=== PATIENT | male | born 1930 | race Caucasian/White ===

== ENCOUNTER 2016-10-04 11:25 | Emergency (ER) | payer MEDICARE ==
[~2016-10-04] VITALS: Ht 188 cm; Wt 83.9 kg
[~2016-10-04 11:25] MED LIST: ACET650S11 RC; ALBU2.5V13 NEB; ASPI325T4 PO; ASPI81TA2 PO; CARV3.12 PO; CARV6.252 PO; CITA20TA5 PO; CITA20TA9 PO; CITA40TA5 PO; DIGO125T PO; FURO-68 PO; FURO40TA4 PO; HYDR-971 PO; HYDR12.53 PO; HYDR12.553 PO; LANS15CA66 PO; LANS30CA PO; LORA10TA68 PO; MULT-208 PO; POLY17PO5 PO; POTA10TA31 PO; POTA20TA12 PO; PROP150T PO; RIVA20TA2 PO; SIMV20TA PO; WARF3TAB7 PO
[2016-10-04] MEDS ORDERED: LIDOCAINE 1% Multi-Dose 20 ML VIAL. ID ONE (12:15)
[2016-10-04 12:32] LABS: BASO % 0 % (0-3); CALCIUM 8.8 mg/dL (8.5-10.1); CREATININE 1.4 mg/dL (0.7-1.3); EOS % 0 % (0-3); GFR 48.4; HEMATOCRIT 39.8 % (39.0-53.0); HEMOGLOBIN 12.9 g/dL (13.0-17.5); LYMPH # 0.5 x10^3/uL (1.0-4.8); LYMPH % 7 % (24-48); MEAN CORPUSCULAR HEMOGLOBIN 30 pg (25-35); MEAN CORPUSCULAR HGB CONC 32 g/dL (31-37); MEAN CORPUSCULAR VOLUME 91 fL (79-100); MONO % 8 % (0-9); NEUT % 84 % (31-73); PLATELET COUNT 162 x10^3/uL (140-400); POTASSIUM 4.5 mmol/L (3.5-5.1); RED BLOOD COUNT 4.35 x10^6/uL (4.30-5.70); RED CELL DISTRIBUTION WIDTH 13.5 % (11.5-14.5); WHITE BLOOD COUNT 6.8 x10^3/uL (4.0-11.0)
[2016-10-04 12:38] LABS: ALBUMIN 3.3 g/dL (3.4-5.0); ALBUMIN/GLOBULIN RATIO 0.8 (1.0-1.7); TOTAL BILIRUBIN 0.4 mg/dL (0.2-1.0); TOTAL PROTEIN 7.3 g/dL (6.4-8.2)
--- NOTE | 2016-10-04 12:44 | PHYS DOC ---
Past Medical History Past Medical History: A-Fib, Anxiety, CAD, CHF, Depression, GERD, High Cholesterol, Hypertension, OR, Stroke Past Surgical History: Coronary Bypass Surgery, Pacemaker, Other Additional Past Surgical Histo: CATARACTS,HERNIA Alcohol Use: None Drug Use: None Adult General Chief Complaint Chief Complaint: FALL HPI HPI Patient is a 85 year old male brought to the ED from home by ambulance after a fall. The patient is extremely hard of hearing, the history is from the patient' s son who is here with him. Son states that the patient frequently has trouble with low blood pressure episodes in the morning, sometimes he gets lightheaded. He believes that's what precipitated a fall this morning. There is no loss of consciousness. Patient has a scrape on his head and arrives by EMS with a c- collar in place. Patient appears to be alert but is not really able to contribute to the history because he is very hard of hearing. Son tells me that the patient was having problems with morning low blood pressure, his carvedilol was cut in half and he is now on 3.125 twice a day, for a while he didn't have trouble with low blood pressure but now they believe he is having trouble with it again. He does have a history of A. fib and has a pacemaker as well. PCP Dr. Hugh Arambula Review of Systems Review of Systems Review of systems not able to be obtained because the patient is very hard of hearing, virtually deaf Current Medications Current Medications Current Medications Medications (Trade) Dose Ordered Sig/Tawnya Start Time Stop Time Status Last Admin Dose Admin Lidocaine HCl 10 ml 1X ONCE 10/04/16 12:15 10/04/16 12:16 DC 10/04/16 13:09 10 ML Allergies Allergies Allergies Coded Allergies Type Severity Reaction Last Updated Verified lactase Allergy Intermediate 06/22/15 Yes Physical Exam Physical Exam Constitutional: Alert, opens eyes when he is spoken to in a loud voice, attempts to say one word at a time, appears to be close to his baseline, very hard of hearing HENT: Skin tear on the top of the head, bilateral external ears normal, nose normal. Right lateral aspect of the upper lip has 2 lacerations that appear to have been caused by his teeth, hemostatic. Eyes: PERRLA, EOMI, conjunctiva normal, no discharge. [] Neck: C-collar was initially left in place. Cardiovascular:Heart rate regular rhythm, no murmur [] Lungs & Thorax: Bilateral breath sounds clear to auscultation [] Abdomen: Bowel sounds normal, soft, no tenderness, no masses, no pulsatile masses. [] Skin: Warm, dry, no erythema, no rash. [] Back: No tenderness, no CVA tenderness. [] Pelvis stable to rocking and nontender Extremities: No tenderness, no cyanosis, no clubbing, ROM intact, no edema. With the exception of right knee which has bruising and tenderness but no joint effusion and is stable. Neurologic: Alert and appears to be at his baseline, normal motor function, normal sensory function, no focal deficits noted. [] Current Patient Data Vital Signs Vital Signs Date Time Temp Pulse Resp B/P Pulse Ox O2 Delivery O2 Flow Rate FiO2 10/04/16 13:40 60 14 192/99 98 Room Air 10/04/16 11:25 97.4 97.4 Lab Values Laboratory Tests Test 10/04/16 12:00 10/04/16 13:35 White Blood Count 6.8x10^3/uL (4.0-11.0) Red Blood Count 4.35x10^6/uL (4.30-5.70) Hemoglobin 12.9g/dL (13.0-17.5) L Hematocrit 39.8% (39.0-53.0) Mean Corpuscular Volume 91fL (79-100) Mean Corpuscular Hemoglobin 30pg (25-35) Mean Corpuscular Hemoglobin Concent 32g/dL (31-37) Red Cell Distribution Width 13.5% (11.5-14.5) Platelet Count 162x10^3/uL (140-400) Neutrophils (%) (Auto) 84% (31-73) H Lymphocytes (%) (Auto) 7% (24-48) L Monocytes (%) (Auto) 8% (0-9) Eosinophils (%) (Auto) 0% (0-3) Basophils (%) (Auto) 0% (0-3) Neutrophils # (Auto) 5.7x10^3uL (1.8-7.7) Lymphocytes # (Auto) 0.5x10^3/uL (1.0-4.8) L Monocytes # (Auto) 0.5x10^3/uL (0.0-1.1) Eosinophils # (Auto) 0.0x10^3/uL (0.0-0.7) Basophils # (Auto) 0.0x10^3/uL (0.0-0.2) Sodium Level 138mmol/L (136-145) Potassium Level 4.5mmol/L (3.5-5.1) Chloride Level 101mmol/L (98-107) Carbon Dioxide Level 30mmol/L (21-32) Anion Gap 7 (6-14) Blood Urea Nitrogen 23mg/dL (8-26) Creatinine 1.4mg/dL (0.7-1.3) H Estimated GFR (Cockcroft-Gault) 48.4 BUN/Creatinine Ratio 16 (6-20) Glucose Level 120mg/dL (70-99) H Calcium Level 8.8mg/dL (8.5-10.1) Total Bilirubin 0.4mg/dL (0.2-1.0) Aspartate Amino Transferase (AST) 15U/L (15-37) Alanine Aminotransferase (ALT) 15U/L (16-63) L Alkaline Phosphatase 78U/L (46-116) Total Protein 7.3g/dL (6.4-8.2) Albumin 3.3g/dL (3.4-5.0) L Albumin/Globulin Ratio 0.8 (1.0-1.7) L Urine Collection Type Unknown Urine Color Yellow Urine Clarity Clear Urine pH 7.0 Urine Specific [place] 1.020 Urine Protein Negativemg/dL (NEG-TRACE) Urine Glucose (UA) Negativemg/dL (NEG) Urine Ketones (Stick) Negativemg/dL (NEG) Urine Blood Negative (NEG) Urine Nitrite Negative (NEG) Urine Bilirubin Negative (NEG) Urine Urobilinogen Dipstick 1.0mg/dL (0.2 mg/dL) Urine Leukocyte Esterase Negative (NEG) Urine RBC 0/HPF (0-2) Urine WBC Rare/HPF (0-4) Urine Squamous Epithelial Cells Occ/LPF Urine Bacteria 0/HPF (0-FEW) Urine Mucus Mod/LPF Laboratory Tests 10/04/16 12:00 Laboratory Tests 10/04/16 12:00 EKG EKG 12-lead EKG read by me. Paced rhythm. Heart rate 65. There are no ectopic beats. There are no ST or T-wave abnormalities. No STEMI. 1141 [] Radiology/Procedures Radiology/Procedures CT scan head and cervical spine read by the radiologist no acute findings. Three-view x-ray of the right knee read by the radiologist no acute findings. [] Procedure: Repair of lip lacerations by me 2 lacerations on the right side of the upper lip measuring 1 cm each, total 2 cm length Lacerations were anesthetized with 1% lidocaine plain, cleaned with saline, each laceration was closed with simple interrupted suture of 6-0 nylon #2, total 4 sutures Lacerations were examined for foreign body and none was found. Good hemostasis and wound edge approximation was achieved. Procedure: Repair of skin tear on the scalp. Saline soaked gauze was used to clean and moisten the skin tear Skin adhesive was used to reapproximate and repair the skin tear Course & Med Decision Making Course & Med Decision Making Pertinent Labs and Imaging studies reviewed. (See chart for details) 85-year-old male who had a fall at home, was lightheaded or maybe had a brief syncope, this is been happening off and on for quite some time. They made a change in his blood pressure medicines a few weeks ago which seemed to improve it for a while but it happened again. I noted that today his pacemaker is set at 60, wondered if maybe that should be bumped up a little bit I spoke with Dr. Kim, the patient's missile tracking technician. The patient has an appointment next week in the office and Dr. Kim will consider changing the pacemaker settings at this time. I believe the patient is stable for discharge, discussed with his son the importance of careful position change and maintaining hydration. [] Dragon Disclaimer Dragon Disclaimer This electronic medical record was generated, in whole or in part, using a voice recognition dictation system. Departure Departure Impression: Primary Impression: Episodic lightheadedness Additional Impression: Laceration of lip Disposition: 01 HOME, SELF-CARE Condition: STABLE Referrals: HUGH ARAMBULA MD (PCP) Patient Instructions: Head Injury, Adult, [id number], Laceration Care, Adult , [id number] Additional Instructions: keep the lip lacerations moist with Vaseline or ointment. Sutures need to be removed in about one week. There are 4 sutures total. Be very careful with position change, take your time when standing up. Take medications as prescribed including Coreg. Do not check blood pressure more than 1 time a day, check your blood pressure when you have time, no specific time of day, alternate from day-to-day what time you take it. Keep a record to take to your doctor. See Dr. Kim next week as planned, he knows about the fall today and will consider re-programming the pacemaker. Problem Qualifiers ORVILLE DELEON MD Oct 04, 2016 12:44
--- NOTE | 2016-10-04 13:25 | RAD ---
Indication head and neck trauma. Pain. Closed head injury. Possible C-spine fracture. Noncontrast images of the head were obtained. The cervical spine was also evaluated. Images of the cervical spine were reformatted in the coronal and sagittal planes. The head is compared to a prior examination 04/24/2016 CT head: Findings The calvarium appears unremarkable and the visualized paranasal sinuses appear normal. There is no subdural or epidural hematoma. There is some underlying atrophy. 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 These findings are similar to the previous exam. A mass or midline shift is not seen. There is no hemorrhage. Acute intracranial finding is not seen. CT cervical spine: Findings. The lung apices are clear. A significant soft tissue finding is not seen. Vascular calcification is noted. There are degenerative changes in the cervical spine. Review of axial images is negative with regards to fracture. An acute finding in the cervical spine is not seen. Reformatted images in the coronal and sagittal planes demonstrate similar findings. 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 No acute finding seen. Chronic changes in the head. No acute finding seen PQRS Compliance Statement: One or more of the following individualized dose reduction techniques were utilized for this examination: 1. Automated exposure control 2. Adjustment of the mA and/or kV according to patient size 3. Use of iterative reconstruction technique
[2016-10-04 13:49] LABS: BILIRUBIN,URINE NEGATIVE (NEG); GLUCOSE,URINE NEGATIVE (NEG); NITRITE,URINE NEGATIVE (NEG); PROTEIN,URINE NEGATIVE (NEG-TRACE)
--- NOTE | 2016-10-04 13:58 | EKG ---
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
--- NOTE | 2016-10-04 14:14 | RAD ---
Three-view right knee study Clinical indications: Syncope. Fell this morning at 10:00 AM. Right knee pain. Findings: No acute fracture or dislocation or osteolytic process is seen. 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 IMPRESSION: No acute fracture.
[2016-10-04 14:26] LABS: BACTERIA,URINE 0 /HPF (0-FEW); RBC,URINE 0 /HPF (0-2); SQUAMOUS EPITHELIAL CELL,UR OCC /LPF; WBC,URINE RARE /HPF (0-4)
[2016-10-04 16:22] VITALS: BP 192/93
== END 2016-10-04 16:40 | disposition home or self-care (01) ==
LOC: ER 11:25
DX: S01.511A Laceration without foreign body of lip, initial encounter (principal); R42 Dizziness and giddiness; I25.2 Old myocardial infarction; I11.0 Hypertensive heart disease with heart failure; I50.9 Heart failure, unspecified; Z86.73 Personal history of transient ischemic attack (TIA), and cerebral infarction without residual deficits; Z95.1 Presence of aortocoronary bypass graft; Z95.0 Presence of cardiac pacemaker; Z91.011 Allergy to milk products; W19.XXXA Unspecified fall, initial encounter; Y93.89 Activity, other specified; Y92.89 Other specified places as the place of occurrence of the external cause; Y99.8 Other external cause status
CPT/HCPCS: 12011; 36415; 70450; 72125; 73562; 80053; 81001; 85027; 93005; 99285-25

== ENCOUNTER 2017-04-28 13:50 | Emergency (ER) | payer MEDICARE ==
[~2017-04-28] VITALS: Ht 188 cm; Wt 81.6 kg
[~2017-04-28 13:50] MED LIST changes: -ALBU2.5V13 NEB; +ALBU2.5V14 NEB; +ASPI-630 PO; -ASPI325T4 PO; +ASPI325T8 PO; -ASPI81TA2 PO; -LANS15CA66 PO; +LANS15CA78 PO; +POLY17PO29 PO; -POLY17PO5 PO
[2017-04-28] MEDS ORDERED: IV NORMAL SALINE 500ML BAG 500 ML IV ONE (14:30)
[2017-04-28] MEDS ORDERED: ONDANSETRON PF 4 MG/2 ML VIAL. IV ONE (14:30)
[2017-04-28 14:37] LABS: BASO % 1 % (0-3); EOS % 1 % (0-3); HEMATOCRIT 37.1 % (39.0-53.0); HEMOGLOBIN 12.3 g/dL (13.0-17.5); LYMPH # 0.7 x10^3/uL (1.0-4.8); LYMPH % 12 % (24-48); MEAN CORPUSCULAR HEMOGLOBIN 31 pg (25-35); MEAN CORPUSCULAR HGB CONC 33 g/dL (31-37); MEAN CORPUSCULAR VOLUME 92 fL (79-100); MONO % 12 % (0-9); NEUT % 74 % (31-73); PLATELET COUNT 170 x10^3/uL (140-400); RED BLOOD COUNT 4.04 x10^6/uL (4.30-5.70); RED CELL DISTRIBUTION WIDTH 12.9 % (11.5-14.5); WHITE BLOOD COUNT 6.1 x10^3/uL (4.0-11.0)
[2017-04-28 14:44] LABS: CALCIUM 8.4 mg/dL (8.5-10.1); CREATININE 1.4 mg/dL (0.7-1.3); GFR 48.3; POTASSIUM 4.6 mmol/L (3.5-5.1)
[2017-04-28] MEDS ORDERED: IOHEXOL 300 MG/ML 75 ML VIAL IV ONE (14:45)
--- NOTE | 2017-04-28 14:47 | PHYS DOC ---
Past Medical History Past Medical History: A-Fib, Anxiety, CAD, CHF, CVA, Depression, GERD, High Cholesterol, Hypertension, ID, Stroke Additional Past Medical Histor: CAPITAN GRANDE Past Surgical History: Coronary Bypass Surgery, Pacemaker, Other Additional Past Surgical Histo: CATARACTS,HERNIA Alcohol Use: None Drug Use: None Adult General Chief Complaint Chief Complaint: DIARRHEA HPI HPI Patient is a 86 year old male who presents with abdominal pain and diarrhea. Patient has 9 day history of diarrhea reporting up to 15-20 loose stools daily. Reports generalized abdominal pain and nausea. Denies fevers or chills, vomiting , hematochezia or melena, dysuria or hematuria. He has some confusion but may additionally be experiencing urinary retention. No recent travel or antibiotics. History of CABG. PCP is Dr. Acosta. History limited by dementia ; accompanied by son who is attempting to supplement history. Review of Systems Review of Systems Constitutional: Denies fever or chills Eyes: Denies change in visual acuity HENT: Denies nasal congestion or sore throat Respiratory: Denies cough or shortness of breath Cardiovascular: Denies chest pain or edema GI: Reports abdominal pain, nausea, and diarrhea, denies vomiting, bloody stools : Denies dysuria or hematuria Musculoskeletal: Denies back pain or joint pain Integument: Denies rash or skin lesions Neurologic: Denies headache, focal weakness or sensory changes Current Medications Current Medications Current Medications Medications (Trade) Dose Ordered Sig/Tawnya Start Time Stop Time Status Last Admin Dose Admin Iohexol (Omnipaque 300 Mg/ml) 75 ml 1X ONCE 04/28/17 14:45 04/28/17 14:46 DC Ondansetron HCl (Zofran) 4 mg 1X ONCE 04/28/17 14:30 04/28/17 14:31 DC 04/28/17 14:36 4 MG Sodium Chloride 500 ml @ 0 mls/hr 1X ONCE 04/28/17 14:30 04/28/17 14:31 DC 04/28/17 14:35 999 MLS/HR Allergies Allergies Allergies Coded Allergies Type Severity Reaction Last Updated Verified lactase Allergy Intermediate 06/22/15 Yes Physical Exam Physical Exam Constitutional: Well developed, well nourished, no acute distress, non-toxic appearance. HENT: Normocephalic, atraumatic, bilateral external ears normal, oropharynx moist, nose normal. Eyes: PERRLA, EOMI, conjunctiva normal, no discharge. Neck: supple, no stridor. Cardiovascular: RRR, no murmurs, no edema. Lungs & Thorax: LCTAB, no wheezing, no respiratory distress. Abdomen: soft, suprapubic tenderness without rebound/guarding, umbilical hernia which is soft otherwise no masses/pulsatile masses, nondistended. Skin: Warm, dry, no erythema, no rash. Back: No CVA tenderness. Extremities: No tenderness, no edema. Neurologic: Alert and oriented X 3, no focal deficits noted. Psychologic: Affect normal, judgement normal, mood normal. Current Patient Data Vital Signs Vital Signs Date Time Temp Pulse Resp B/P (MAP) Pulse Ox O2 Delivery O2 Flow Rate FiO2 04/28/17 14:05 70 18 168/61 (96) 97 Room Air Lab Values Laboratory Tests Test 04/28/17 14:20 White Blood Count 6.1 x10^3/uL (4.0-11.0) Red Blood Count 4.04 x10^6/uL (4.30-5.70) L Hemoglobin 12.3 g/dL (13.0-17.5) L Hematocrit 37.1 % (39.0-53.0) L Mean Corpuscular Volume 92 fL (79-100) Mean Corpuscular Hemoglobin 31 pg (25-35) Mean Corpuscular Hemoglobin Concent 33 g/dL (31-37) Red Cell Distribution Width 12.9 % (11.5-14.5) Platelet Count 170 x10^3/uL (140-400) Neutrophils (%) (Auto) 74 % (31-73) H Lymphocytes (%) (Auto) 12 % (24-48) L Monocytes (%) (Auto) 12 % (0-9) H Eosinophils (%) (Auto) 1 % (0-3) Basophils (%) (Auto) 1 % (0-3) Neutrophils # (Auto) 4.5 x10^3uL (1.8-7.7) Lymphocytes # (Auto) 0.7 x10^3/uL (1.0-4.8) L Monocytes # (Auto) 0.7 x10^3/uL (0.0-1.1) Eosinophils # (Auto) 0.1 x10^3/uL (0.0-0.7) Basophils # (Auto) 0.0 x10^3/uL (0.0-0.2) Sodium Level 140 mmol/L (136-145) Potassium Level 4.6 mmol/L (3.5-5.1) Chloride Level 104 mmol/L (98-107) Carbon Dioxide Level 30 mmol/L (21-32) Anion Gap 6 (6-14) Blood Urea Nitrogen 32 mg/dL (8-26) H Creatinine 1.4 mg/dL (0.7-1.3) H Estimated GFR (Cockcroft-Gault) 48.3 BUN/Creatinine Ratio 23 (6-20) H Glucose Level 98 mg/dL (70-99) Lactic Acid Level 0.7 mmol/L (0.4-2.0) Calcium Level 8.4 mg/dL (8.5-10.1) L Total Bilirubin 0.4 mg/dL (0.2-1.0) Aspartate Amino Transferase (AST) 17 U/L (15-37) Alanine Aminotransferase (ALT) 20 U/L (16-63) Alkaline Phosphatase 62 U/L (46-116) Troponin I Quantitative < 0.017 ng/mL (0.000-0.055) Total Protein 6.7 g/dL (6.4-8.2) Albumin 3.5 g/dL (3.4-5.0) Albumin/Globulin Ratio 1.1 (1.0-1.7) Lipase 264 U/L (73-393) Laboratory Tests 04/28/17 14:20 Laboratory Tests 04/28/17 14:20 EKG EKG interpreted by me: NSR rate 71, no acute ST/T wave changes, normal intervals, no ectopy.[] Radiology/Procedures Radiology/Procedures [CT abdomen pelvis: No acute inflammatory or infectious process, copious fecal matter throughout: Consistent with constipation per radiology report.] Course & Med Decision Making Course & Med Decision Making Pertinent Labs and Imaging studies reviewed. (See chart for details) Patient presents abdominal pain and diarrhea, possibly urinary retention. Gave IV fluids and Zofran. Obtained labs, will obtain post void residual bladder scan as well as CT of the abdomen and pelvis. Workup pending at the end of my shift. Anticipate patient may require admission to the hospital but family would like to discuss results before making a final decision. He is in stable condition at the end of my shift. Will transfer care to Dr. Guardado at 1500. Emilia Otero MD Patient's abdomen soft, nonsurgical. Vital signs stable, CT lab work reviewed. Recommendations are for home bowel care, daily Metamucil and PCP follow-up. Return precautions reviewed. Patient family members verbalized understanding of discharge instructions and plans prior to discharge. Dragon Disclaimer Dragon Disclaimer This electronic medical record was generated, in whole or in part, using a voice recognition dictation system. Departure Departure Impression: Primary Impression: Constipation Disposition: 01 HOME, SELF-CARE Condition: GOOD Referrals: JULIO ACOSTA MD (PCP) EMILIA OTERO MD Apr 28, 2017 14:47 JOHN GUARDADO DO Apr 28, 2017 17:01
[2017-04-28 14:49] LABS: ALBUMIN 3.5 g/dL (3.4-5.0); ALBUMIN/GLOBULIN RATIO 1.1 (1.0-1.7); TOTAL BILIRUBIN 0.4 mg/dL (0.2-1.0); TOTAL PROTEIN 6.7 g/dL (6.4-8.2)
--- NOTE | 2017-04-28 16:03 | RAD ---
CT abdomen and pelvis without contrast HISTORY: Abdominal pain with diarrhea. TECHNIQUE: Helical noncontrast imaging of the abdomen and pelvis was acquired. Abdomen findings: Trace dependent right pleural thickening or fluid. Liver, gallbladder, pancreas, spleen, adrenal glands and kidneys are unremarkable. No nephroureterolithiasis or hydronephrosis. Gynecomastia. Old removed gastrostomy tract noted. No small bowel obstruction. No inflammatory changes in GI tract. Left inguinal hernia containing a loop of the sigmoid colon without obstructive or inflammatory changes. Large volume of stool within the colon both proximal and distal to the inguinal hernia consistent with constipation. Appendix poorly visualized could be surgically absent or obscured by surrounding small bowel loops. 3 cm fatty umbilical wall hernia. Aortoiliac bypass. Pelvis findings: Large volume of stool within the rectosigmoid colon. Left inguinal hernia of the sigmoid colon. Bladder, prostate and bones are unremarkable. No pelvic fluid. IMPRESSION: 1. Large volume of stool within the colon consistent with constipation, with fecal impaction at the rectum. 2. Left inguinal hernia containing a loop of the sigmoid colon without obstructive or inflammatory changes evident. Exposure: One or more of the following individualized dose reduction techniques were utilized for this examination: 1. Automated exposure control 2. Adjustment of the mA and/or kV according to patient size 3. Use of iterative reconstruction technique Electronically signed by: Lester Hernandez MD (04/28/2017 3:59 PM) [facility]
[2017-04-28 16:14] VITALS: BP 181/87
[2017-04-28 17:14] LABS: BILIRUBIN,URINE NEGATIVE (NEG); GLUCOSE,URINE NEGATIVE (NEG); NITRITE,URINE NEGATIVE (NEG); PROTEIN,URINE NEGATIVE (NEG-TRACE); UROBILINOGEN,URINE 0.2 mg/dL (0.2 mg/dL)
[2017-04-28 17:24] LABS: BACTERIA,URINE 0 /HPF (0-FEW); RBC,URINE 0 /HPF (0-2); SQUAMOUS EPITHELIAL CELL,UR OCC /LPF; WBC,URINE 0 /HPF (0-4)
--- NOTE | 2017-04-28 17:58 | EKG ---
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
[2017-05-01] MEDS ORDERED: ASPI325T8 PO (04:17)
[2017-05-01] MEDS ORDERED: LANS30CA PO (04:17)
[2017-05-01] MEDS ORDERED: LORA10CA PO (04:18)
== END 2017-04-28 16:58 | disposition home or self-care (01) ==
LOC: ER 13:50
DX: K59.00 Constipation, unspecified (principal); I48.91 Unspecified atrial fibrillation; F41.9 Anxiety disorder, unspecified; I25.10 Atherosclerotic heart disease of native coronary artery without angina pectoris; I11.0 Hypertensive heart disease with heart failure; I50.9 Heart failure, unspecified; F32.9 Major depressive disorder, single episode, unspecified; K21.9 Gastro-esophageal reflux disease without esophagitis; E78.00 Pure hypercholesterolemia, unspecified; I25.2 Old myocardial infarction; F03.90 Unspecified dementia, unspecified severity, without behavioral disturbance, psychotic disturbance, mood disturbance, and anxiety; Z95.1 Presence of aortocoronary bypass graft; Z86.73 Personal history of transient ischemic attack (TIA), and cerebral infarction without residual deficits; Z95.0 Presence of cardiac pacemaker; Z91.011 Allergy to milk products
CPT/HCPCS: 96361; 96374; 99285; J2405; J7040; 36415; 74176; 80053; 81001; 83605; 83690; 84484; 85025; 93005

== ENCOUNTER 2017-05-19 22:37 | Emergency (ER) | payer MEDICARE ==
[~2017-05-19] VITALS: Ht 188 cm; Wt 83.9 kg
[~2017-05-19 22:37] MED LIST changes: +LORA10CA PO
[2017-05-20] MEDS ORDERED: cloNIDine HCL 0.1 MG TABLET PO ONE (00:15)
--- NOTE | 2017-05-20 01:49 | PHYS DOC ---
Past Medical History Past Medical History: A-Fib, Anxiety, CAD, CHF, CVA, Depression, GERD, High Cholesterol, Hypertension, [place], Stroke Additional Past Medical Histor: CAPITAN GRANDE Past Surgical History: Coronary Bypass Surgery, Pacemaker, Other Additional Past Surgical Histo: CATARACTS,HERNIA Alcohol Use: None Drug Use: None Adult General Chief Complaint Chief Complaint: HYPERTENSION HPI HPI Patient is a 86 year old gentleman with history significant for hypertension presents to the ER today for further evaluation of his elevated blood pressure. Patient's son is here with him and reports his blood pressure is very labile. He reports he takes carvedilol 3.125 twice a day but for the most part the family hold his morning dose because he takes it his blood pressure dropped significantly. Family reports that they've given his medications over the last day or 2 and his blood pressure is still significantly elevated. Son is here today requesting assistance with managing his blood pressure. Patient has any history of hypertension. Patient status post bypass surgery. Patient has a history of high cholesterol CHF and atrial fibrillation. Patient denies any diabetes liver longer kidney pals. Patient currently denies any other symptomatology. Patient has any fevers shakes chills nausea vomiting diarrhea chest pain shortness of breath dysuria frequency urgency or lower extremity edema. Constitutional: Denies fever or chills Eyes: Denies change in visual acuity, redness, or eye pain All other review systems are negative except as documented in the history of present illness portion. Constitutional: Well developed, well nourished, no acute distress, non-toxic appearance. HENT: Normocephalic, atraumatic, bilateral external ears normal, oropharynx moist, no oral exudates, nose normal. Eyes: PERRLA, EOMI, conjunctiva normal, no discharge. Neck: Normal range of motion, no tenderness, supple, no stridor. Cardiovascular:Heart rate regular rhythm, Lungs & Thorax: Bilateral breath sounds clear to auscultation Abdomen: Bowel sounds normal, soft, no tenderness, no masses, no pulsatile masses. Skin: Warm, dry, no erythema, no rash. Back: No tenderness, no CVA tenderness. Extremities: No tenderness, no cyanosis, no clubbing, ROM intact, no edema. Neurologic: Alert and oriented X 3, normal motor function, normal sensory function, no focal deficits noted. Psychologic: Affect normal, judgement normal, mood normal. Assessment and plan 86-year-old gentleman who presents here today secondary to elevated blood pressure. Patient is given clonidine 0.1 mg by mouth with significant improvement in his blood pressure. Patient will be discharged home in stable condition on discharge to follow-up with his primary care physician in one to 2 days. Current Medications Current Medications Current Medications Medications (Trade) Dose Ordered Sig/Tawnya Start Time Stop Time Status Last Admin Dose Admin Clonidine HCl (Catapres) 0.1 mg 1X ONCE 05/20/17 00:15 05/20/17 01:06 DC 05/20/17 00:46 0.1 MG Allergies Allergies Allergies Coded Allergies Type Severity Reaction Last Updated Verified lactase Allergy Intermediate 06/22/15 Yes Physical Exam Physical Exam Constitutional: Well developed, well nourished, no acute distress, non-toxic appearance. [] HENT: Normocephalic, atraumatic, bilateral external ears normal, oropharynx moist, no oral exudates, nose normal. [] Eyes: PERRLA, EOMI, conjunctiva normal, no discharge. [] Neck: Normal range of motion, no tenderness, supple, no stridor. [] Cardiovascular:Heart rate regular rhythm, no murmur [] Lungs & Thorax: Bilateral breath sounds clear to auscultation [] Abdomen: Bowel sounds normal, soft, no tenderness, no masses, no pulsatile masses. [] Skin: Warm, dry, no erythema, no rash. [] Back: No tenderness, no CVA tenderness. [] Extremities: No tenderness, no cyanosis, no clubbing, ROM intact, no edema. [] Neurologic: Alert and oriented X 3, normal motor function, normal sensory function, no focal deficits noted. [] Psychologic: Affect normal, judgement normal, mood normal. [] Current Patient Data Vital Signs Vital Signs Date Time Temp Pulse Resp B/P (MAP) Pulse Ox O2 Delivery O2 Flow Rate FiO2 05/20/17 02:10 72 16 115/72 (86) 97 Room Air 05/19/17 23:50 97.5 97.5 EKG EKG [] Radiology/Procedures Radiology/Procedures [] Course & Med Decision Making Course & Med Decision Making Pertinent Labs and Imaging studies reviewed. (See chart for details) [] Dragon Disclaimer Dragon Disclaimer This electronic medical record was generated, in whole or in part, using a voice recognition dictation system. Departure Departure Impression: Primary Impression: Hypertension Disposition: 01 HOME, SELF-CARE Condition: IMPROVED Referrals: JULIO ACOSTA MD (PCP) Patient Instructions: Hypertension KRYSTAL VAZQUEZ MD May 20, 2017 01:49
[2017-05-20 02:10] VITALS: BP 115/72
== END 2017-05-20 02:18 | disposition home or self-care (01) ==
LOC: ER 22:37
DX: I11.0 Hypertensive heart disease with heart failure (principal); I50.9 Heart failure, unspecified; I48.91 Unspecified atrial fibrillation; I25.10 Atherosclerotic heart disease of native coronary artery without angina pectoris; I25.2 Old myocardial infarction; E78.00 Pure hypercholesterolemia, unspecified; Z86.73 Personal history of transient ischemic attack (TIA), and cerebral infarction without residual deficits; Z91.011 Allergy to milk products; Z95.0 Presence of cardiac pacemaker
CPT/HCPCS: 99282

== ENCOUNTER 2017-05-29 21:59 | Emergency (ER) | payer MEDICARE ==
[~2017-05-29] VITALS: Ht 188 cm; Wt 83.9 kg
[2017-05-29 22:26] LABS: BASO # 0.1 x10^3/uL (0.0-0.2); BASO % 1 % (0-3); EOS % 1 % (0-3); HEMATOCRIT 41.5 % (39.0-53.0); HEMOGLOBIN 13.8 g/dL (13.0-17.5); LYMPH # 1.5 x10^3/uL (1.0-4.8); LYMPH % 24 % (24-48); MEAN CORPUSCULAR HEMOGLOBIN 31 pg (25-35); MEAN CORPUSCULAR HGB CONC 33 g/dL (31-37); MEAN CORPUSCULAR VOLUME 92 fL (79-100); MONO % 11 % (0-9); NEUT % 62 % (31-73); PLATELET COUNT 166 x10^3/uL (140-400); RED BLOOD COUNT 4.49 x10^6/uL (4.30-5.70); WHITE BLOOD COUNT 6.3 x10^3/uL (4.0-11.0)
[2017-05-29] MEDS ORDERED: LABETALOL 20 MG/4 ML DISP.SYRIN. IVP ONE (22:30)
--- NOTE | 2017-05-29 22:30 | PHYS DOC ---
Past Medical History Past Medical History: A-Fib, Anxiety, CAD, CHF, CVA, Depression, GERD, High Cholesterol, Hypertension, NH, Stroke Additional Past Medical Histor: J[place] Past Surgical History: Coronary Bypass Surgery, Pacemaker, Other Additional Past Surgical Histo: CATARACTS,HERNIA Alcohol Use: None Drug Use: None Adult General Chief Complaint Chief Complaint: HYPERTENSION HPI HPI Patient is a 86 year old male with past medical history that includes hypertension, congestive heart failure and dementia presents with complaints of elevated blood pressure. 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 Other than her blood pressures there are no other complaints. Per the family member that hasn't been a recent adjustment in medication regimen, he also states that medications are given to the patient by the caregiver. The patient is pleasant and appears to be in no distress when I asked him if anything is bothering him he states he is fine, he is only stress about the recent news on the TV History and ROS limited secondary to dementia Review of Systems Review of Systems Constitutional: Denies fever or chills [] HENT: Denies nasal congestion or sore throat [] Respiratory: Denies cough or shortness of breath [] Cardiovascular: No chest pain GI: Denies abdominal pain, nausea, vomiting, : Denies dysuria or hematuria [] Musculoskeletal: Denies back pain or joint pain [] Integument: Denies rash or skin lesions [] Neurologic: Denies headache, focal weakness or sensory changes [] ROS limited secondary to dementia, per family member the patient has no complaints no recent changes in his state of health Current Medications Current Medications Current Medications Medications (Trade) Dose Ordered Sig/Tawnya Start Time Stop Time Status Last Admin Dose Admin Dextrose 250 ml @ 250 mls/hr 1X ONCE 05/29/17 23:00 05/29/17 23:59 Cancel Labetalol HCl (Normodyne) 10 mg 1X ONCE 05/29/17 22:30 05/29/17 22:31 DC 05/29/17 22:37 10 MG Allergies Allergies Allergies Coded Allergies Type Severity Reaction Last Updated Verified lactase Allergy Intermediate 06/22/15 Yes Physical Exam Physical Exam Constitutional: Well developed, well nourished, no acute distress, non-toxic appearance. [] HENT: Normocephalic, atraumatic, oropharynx dry, no oral exudates, nose normal. [] Eyes: EOMI, conjunctiva normal, no discharge. [] Neck: Normal range of motion, no tenderness, supple, no stridor. No LAD, no meningeal signs Cardiovascular:Heart rate regular rhythm, no murmur, equal pulses, normal perfusion Lungs & Thorax: Bilateral breath sounds clear to auscultation, no tachypnea Abdomen: Bowel sounds normal, soft, no tenderness, no masses, no pulsatile masses. [] Skin: Warm, dry, no erythema, no rash. [] Back: No tenderness, no CVA tenderness. [] Extremities: No tenderness, no cyanosis, no DVT, ROM intact, no edema. [] Neurologic: Alert and oriented X 3, normal motor function, , no focal deficits noted. [] Psychologic: Affect normal, dementia. [] Current Patient Data Vital Signs Vital Signs Date Time Temp Pulse Resp B/P (MAP) Pulse Ox O2 Delivery O2 Flow Rate FiO2 05/29/17 22:37 69 179/101 05/29/17 22:14 98.0 16 98 Room Air 98.0 Lab Values Laboratory Tests Test 05/29/17 22:10 White Blood Count 6.3 x10^3/uL (4.0-11.0) Red Blood Count 4.49 x10^6/uL (4.30-5.70) Hemoglobin 13.8 g/dL (13.0-17.5) Hematocrit 41.5 % (39.0-53.0) Mean Corpuscular Volume 92 fL (79-100) Mean Corpuscular Hemoglobin 31 pg (25-35) Mean Corpuscular Hemoglobin Concent 33 g/dL (31-37) Red Cell Distribution Width 13.0 % (11.5-14.5) Platelet Count 166 x10^3/uL (140-400) Neutrophils (%) (Auto) 62 % (31-73) Lymphocytes (%) (Auto) 24 % (24-48) Monocytes (%) (Auto) 11 % (0-9) H Eosinophils (%) (Auto) 1 % (0-3) Basophils (%) (Auto) 1 % (0-3) Neutrophils # (Auto) 3.9 x10^3uL (1.8-7.7) Lymphocytes # (Auto) 1.5 x10^3/uL (1.0-4.8) Monocytes # (Auto) 0.7 x10^3/uL (0.0-1.1) Eosinophils # (Auto) 0.1 x10^3/uL (0.0-0.7) Basophils # (Auto) 0.1 x10^3/uL (0.0-0.2) Sodium Level 134 mmol/L (136-145) L Potassium Level 4.4 mmol/L (3.5-5.1) Chloride Level 97 mmol/L (98-107) L Carbon Dioxide Level 31 mmol/L (21-32) Anion Gap 6 (6-14) Blood Urea Nitrogen 24 mg/dL (8-26) Creatinine 1.2 mg/dL (0.7-1.3) Estimated GFR (Cockcroft-Gault) 57.7 BUN/Creatinine Ratio 20 (6-20) Glucose Level 102 mg/dL (70-99) H Calcium Level 9.3 mg/dL (8.5-10.1) Magnesium Level 2.5 mg/dL (1.8-2.4) H Total Bilirubin 0.3 mg/dL (0.2-1.0) Aspartate Amino Transferase (AST) 16 U/L (15-37) Alanine Aminotransferase (ALT) 14 U/L (16-63) L Alkaline Phosphatase 75 U/L (46-116) Troponin I Quantitative < 0.017 ng/mL (0.000-0.055) JK-Ptf-[id number]-Type Natriuretic Peptide 342 pg/mL (0-449) Total Protein 7.6 g/dL (6.4-8.2) Albumin 3.8 g/dL (3.4-5.0) Albumin/Globulin Ratio 1.0 (1.0-1.7) Laboratory Tests 05/29/17 22:10 Laboratory Tests 05/29/17 22:10 EKG EKG 2223 sinus rhythm, 71, no STEMI, paced[] Radiology/Procedures Radiology/Procedures [] Course & Med Decision Making Course & Med Decision Making Pertinent Labs and Imaging studies reviewed. (See chart for details) Patient in no distress, blood pressure now 179/101. I had long discussion with the son and explained the need for him reevaluation of the blood pressure regimen and timing of the medications. He states he will discuss this with the the patient's PCP tomorrow. He he states that blood pressure has been low in the morning for this patient. No reservations being discharged home. I advised him to recheck the blood pressure medication in the morning middle of the day in the afternoon tomorrow. [] Dragon Disclaimer Dragon Disclaimer This electronic medical record was generated, in whole or in part, using a voice recognition dictation system. Departure Departure Impression: Primary Impression: Hypertension Disposition: 01 HOME, SELF-CARE Condition: STABLE Referrals: JULIO ACOSTA MD (PCP) Please see your doctor in 1 day and discuss need for adjustment of YOUR blood pressure regimen Patient Instructions: Hypertension Nurys THOMPSON MD May 29, 2017 22:30
[2017-05-29 22:46] LABS: ALBUMIN 3.8 g/dL (3.4-5.0); CALCIUM 9.3 mg/dL (8.5-10.1); CREATININE 1.2 mg/dL (0.7-1.3); GFR 57.7; POTASSIUM 4.4 mmol/L (3.5-5.1); TOTAL BILIRUBIN 0.3 mg/dL (0.2-1.0); TOTAL PROTEIN 7.6 g/dL (6.4-8.2)
[2017-05-29] MEDS ORDERED: IV DEXTROSE 5% 250 ML IV ONE (23:00)
[2017-05-29 23:06] VITALS: BP 149/90
--- NOTE | 2017-05-30 06:31 | EKG ---
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
== END 2017-05-29 23:44 | disposition home or self-care (01) ==
LOC: ER 21:59
DX: I11.0 Hypertensive heart disease with heart failure (principal); I50.9 Heart failure, unspecified; I48.91 Unspecified atrial fibrillation; I25.10 Atherosclerotic heart disease of native coronary artery without angina pectoris; K21.9 Gastro-esophageal reflux disease without esophagitis; E78.00 Pure hypercholesterolemia, unspecified; I25.2 Old myocardial infarction; Z95.0 Presence of cardiac pacemaker; Z95.1 Presence of aortocoronary bypass graft
CPT/HCPCS: 36415; 80053; 83735; 83880; 84484; 85025; 93005; 96374; 99285; J3490

== ENCOUNTER 2017-06-06 17:40 | Emergency (ER) | payer MEDICARE ==
[2017-06-06] MEDS ORDERED: DONE10TA7 PO (18:04)
[2017-06-06 18:06] LABS: BASO # 0.1 x10^3/uL (0.0-0.2); BASO % 1 % (0-3); EOS % 1 % (0-3); HEMOGLOBIN 14.5 g/dL (13.0-17.5); LYMPH # 0.9 x10^3/uL (1.0-4.8); LYMPH % 12 % (24-48); MEAN CORPUSCULAR HEMOGLOBIN 31 pg (25-35); MEAN CORPUSCULAR HGB CONC 34 g/dL (31-37); MEAN CORPUSCULAR VOLUME 92 fL (79-100); MONO % 10 % (0-9); NEUT % 77 % (31-73); PLATELET COUNT 173 x10^3/uL (140-400); RED BLOOD COUNT 4.66 x10^6/uL (4.30-5.70); RED CELL DISTRIBUTION WIDTH 13.3 % (11.5-14.5); WHITE BLOOD COUNT 7.3 x10^3/uL (4.0-11.0)
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
[2017-06-06 18:16] LABS: INR 1.1 (0.8-1.1); PROTHROMBIN TIME PATIENT 13.2 SEC (11.7-14.0)
[2017-06-06 18:30] LABS: ALBUMIN 3.8 g/dL (3.4-5.0); CALCIUM 9.2 mg/dL (8.5-10.1); CREATININE 1.2 mg/dL (0.7-1.3); GFR 57.7; POTASSIUM 4.8 mmol/L (3.5-5.1); TOTAL BILIRUBIN 0.4 mg/dL (0.2-1.0); TOTAL PROTEIN 7.7 g/dL (6.4-8.2)
--- NOTE | 2017-06-06 18:34 | EKG ---
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
[2017-06-06 18:41] LABS: CKMB MASS 0.7 ng/mL (0.0-3.6); CREATINE KINASE 38 U/L (39-308)
[2017-06-06 20:00] VITALS: BP 167/90
--- NOTE | 2017-06-07 08:25 | RAD ---
Indication nontraumatic chest pain. Tachycardia arrhythmia. A single view of the chest was obtained and is compared to an exam 05/01/2017. Postoperative changes are noted. Bipolar cardiac pacing device and atrial clip are noted. Heart size and pulmonary vessels are within normal limits. There is no acute parenchymal infiltrate. Significant pleural fluid is not seen and there is no pneumothorax. Healed left clavicular fracture and left rib fractures are noted. IMPRESSION: No acute finding apparent in the chest
== END 2017-06-06 20:04 | disposition home or self-care (01) ==
LOC: ER 17:40
DX: R07.89 Other chest pain (principal); I48.91 Unspecified atrial fibrillation; F41.9 Anxiety disorder, unspecified; I25.10 Atherosclerotic heart disease of native coronary artery without angina pectoris; I11.0 Hypertensive heart disease with heart failure; I50.9 Heart failure, unspecified; F03.90 Unspecified dementia, unspecified severity, without behavioral disturbance, psychotic disturbance, mood disturbance, and anxiety; F32.9 Major depressive disorder, single episode, unspecified; K21.9 Gastro-esophageal reflux disease without esophagitis; E78.00 Pure hypercholesterolemia, unspecified; I25.2 Old myocardial infarction; Z95.0 Presence of cardiac pacemaker; Z95.1 Presence of aortocoronary bypass graft; Z86.73 Personal history of transient ischemic attack (TIA), and cerebral infarction without residual deficits; Z98.49 Cataract extraction status, unspecified eye; Z91.011 Allergy to milk products
CPT/HCPCS: 36415; 71010; 80053; 82553; 83735; 83880; 84484; 85025; 85610; 93005; 99285-25

== ENCOUNTER 2017-11-10 15:37 | Emergency (ER) | payer MEDICARE ==
[2017-11-10] MEDS ORDERED: 0.9 % SODIUM CHLORIDE 10 ML DISP.SYRIN. IV (16:00)
[2017-11-10] MEDS: IV NORMAL SALINE 1000ML BAG 1,000 ML IV (16:15)
[2017-11-10 16:47] LABS: ADD MAN DIFF? NO
[2017-11-10 16:50] LABS: BASO % 1 % (0-3); EOS # 0.1 x10^3/uL (0.0-0.7); EOS % 1 % (0-3); HEMATOCRIT 37.1 % (39.0-53.0); HEMOGLOBIN 12.2 g/dL (13.0-17.5); LYMPH # 0.5 x10^3/uL (1.0-4.8); LYMPH % 7 % (24-48); MEAN CORPUSCULAR HEMOGLOBIN 30 pg (25-35); MEAN CORPUSCULAR HGB CONC 33 g/dL (31-37); MEAN CORPUSCULAR VOLUME 92 fL (79-100); MONO # 0.6 x10^3/uL (0.0-1.1); MONO % 10 % (0-9); NEUT # 5.5 x10^3uL (1.8-7.7); NEUT % 82 % (31-73); PLATELET COUNT 111 x10^3/uL (140-400); RED BLOOD COUNT 4.03 x10^6/uL (4.30-5.70); RED CELL DISTRIBUTION WIDTH 12.6 % (11.5-14.5); WHITE BLOOD COUNT 6.8 x10^3/uL (4.0-11.0)
[2017-11-10 17:08] LABS: TROPONINI < 0.017 ng/mL (0.000-0.055)
[2017-11-10 17:08] LABS: ANION GAP 6 (6-14); BLOOD UREA NITROGEN 29 mg/dL (8-26); CALCIUM 8.7 mg/dL (8.5-10.1); CARBON DIOXIDE 33 mmol/L (21-32); CHLORIDE 104 mmol/L (98-107); CREATININE 1.3 mg/dL (0.7-1.3); GFR 52.5; GLUCOSE 98 mg/dL (70-99); POTASSIUM 4.6 mmol/L (3.5-5.1); SODIUM 143 mmol/L (136-145)
[2017-11-10 17:13] LABS: ALBUMIN 2.9 g/dL (3.4-5.0); ALK PHOS 75 U/L (46-116); ALT (SGPT) 21 U/L (16-63); AST (SGOT) 16 U/L (15-37); DIRECT BILIRUBIN 0.1 mg/dL (0.0-0.2); MAGNESIUM 2.2 mg/dL (1.8-2.4); TOTAL BILIRUBIN 0.4 mg/dL (0.2-1.0)
[2017-11-10 17:14] LABS: CKMB INDEX 2.8 % (0-4); CKMB MASS 0.8 ng/mL (0.0-3.6); CREATINE KINASE 29 U/L (39-308)
[2017-11-10 17:14] LABS: THYROID STIM HORMONE (TSH) 1.478 uIU/mL (0.358-3.74)
[2017-11-10 17:16] LABS: BILIRUBIN,URINE NEGATIVE (NEG); CLARITY,URINE CLEAR; COLOR,URINE YELLOW; GLUCOSE,URINE 100 mg/dL (NEG); NITRITE,URINE NEGATIVE (NEG); PH,URINE 7.5; PROTEIN,URINE 30 mg/dL (NEG-TRACE)
[2017-11-10 17:19] LABS: BACTERIA,URINE 0 /HPF (0-FEW); RBC,URINE 0 /HPF (0-2); WBC,URINE 0 /HPF (0-4)
== END 2017-11-10 18:11 | disposition home or self-care (01) ==
LOC: ER 15:37
DX: M48.54XA Collapsed vertebra, not elsewhere classified, thoracic region, initial encounter for fracture (principal); S00.01XA Abrasion of scalp, initial encounter; I10 Essential (primary) hypertension; I25.10 Atherosclerotic heart disease of native coronary artery without angina pectoris; I11.0 Hypertensive heart disease with heart failure; I50.9 Heart failure, unspecified; I48.91 Unspecified atrial fibrillation; F41.9 Anxiety disorder, unspecified; K21.9 Gastro-esophageal reflux disease without esophagitis; Z86.73 Personal history of transient ischemic attack (TIA), and cerebral infarction without residual deficits; E78.00 Pure hypercholesterolemia, unspecified; I25.2 Old myocardial infarction; Z95.0 Presence of cardiac pacemaker; Z95.1 Presence of aortocoronary bypass graft; Z91.011 Allergy to milk products; W18.30XA Fall on same level, unspecified, initial encounter; Y93.89 Activity, other specified; Y99.8 Other external cause status; Y92.89 Other specified places as the place of occurrence of the external cause
CPT/HCPCS: 36415; 70450; 71045; 72125; 72128; 72131; 80048; 80076; 81001; 82553; 83735; 84443; 84484; 85025; 96360; 96361; 99285-25; J7030

== ENCOUNTER → 2018-01-11 | Outpatient (CLI) | payer MEDICARE | END | disposition home or self-care (01) | LOC: CT 13:29 | DX: N20.0 Calculus of kidney (principal); I70.0 Atherosclerosis of aorta | CPT/HCPCS: 74176 ==

== ENCOUNTER 2018-01-17 02:41 | Emergency (ER) | payer MEDICARE | END 2018-01-17 04:29 | disposition home or self-care (01) | LOC: ER 02:41 | DX: S01.01XA Laceration without foreign body of scalp, initial encounter (principal); E78.00 Pure hypercholesterolemia, unspecified; F03.90 Unspecified dementia, unspecified severity, without behavioral disturbance, psychotic disturbance, mood disturbance, and anxiety; F32.9 Major depressive disorder, single episode, unspecified; F41.9 Anxiety disorder, unspecified; I11.0 Hypertensive heart disease with heart failure; I25.10 Atherosclerotic heart disease of native coronary artery without angina pectoris; I50.9 Heart failure, unspecified; I48.91 Unspecified atrial fibrillation; K21.9 Gastro-esophageal reflux disease without esophagitis; Z86.73 Personal history of transient ischemic attack (TIA), and cerebral infarction without residual deficits; Z95.0 Presence of cardiac pacemaker; Z91.011 Allergy to milk products; W01.0XXA Fall on same level from slipping, tripping and stumbling without subsequent striking against object, initial encounter; Y93.89 Activity, other specified; Y92.89 Other specified places as the place of occurrence of the external cause; Y99.8 Other external cause status | CPT/HCPCS: 12004; 70450; 99284 ==